=== PATIENT | female | born 2005 | race Caucasian/White ===

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

== ENCOUNTER 2024-02-07 18:01 | Emergency (ER) | payer OTHER, SELFPAY ==
[2024-02-07 18:03] VITALS: BP 139/88; PULSE 87; RESP 16; TEMP 36.4; O2SAT 100
--- NOTE | 2024-02-07 18:14 | ED.SKABFB ---
HPI - Skin/Abscess/Foreign Bdy General Chief complaint: Skin/Abscess/Foreign Body Stated complaint: hemorrhoid Time Seen by Provider: 02/07/24 18:06 Source: patient Mode of arrival: ambulatory Limitations: no limitations History of Present Illness HPI narrative: Yue is a 18-year-old female patient presenting to the ER today with complaints of a painful hemorrhoid. She reports that she has had the hemorrhoid for a long time however over the last few days is become more painful. States she is passing hard stools and this is causing increase in pain. Does note some blood on the toilet paper when wiping. No fever or chills. Denies any abdominal pain. Related Data Allergies Allergy/AdvReac Type Severity Reaction Status Date / Time lisinopril Allergy Intermediate Swelling Verified 01/13/24 15:46 losartan Allergy Intermediate Swelling Verified 01/13/24 15:46 red dye Allergy Unknown Verified 01/13/24 15:46 Review of Systems Review of Systems: Pertinent positives per HPI. Patient denies any fever, chills, rash, headache, visual changes, dizziness, cough, runny nose, sore throat, shortness of breath, chest pain, palpitations, nausea, vomiting, diarrhea, constipation, abdominal pain, or any urinary issues. [facility] Past Medical History Medical History HTN (hypertension) Social History Social History Smoking status: Never smoker Alcohol intake: never Do You Feel Safe in your Home?: Yes Lack of Transportation: No Lack of Food: Never True Current Housing: I Have Housing Concerned About Future Housing: No Difficulty Paying Gas/Electric Bills: No Difficulty Paying for Meds: No Currently Unemployed: No Education: High School Diploma/GED Difficulty w/ Childcare or Family Care: No Gender identity (if verbalized by the patient): Female Comments At the time of my signature, I reviewed and agree with the nursing past medical, surgical, social, and family history. There is no relevant family history pertinent to the patient complaint. Exam Narrative: General: Well-developed, well nourished, in no apparent distress. Head: Normocephalic, atraumatic. Cardio: Regular rate and rhythm, s1 and s2 normal, no murmur appreciated. Resp: Clear to auscultation bilaterally, no rhonchi, rales, wheezing or rubs. Abdomen: Soft, pliable, bowel sounds present in all quadrants, non-tender to palpation, no organomegly, no CVAT tenderness. Rectal: Joan RN at bedside- external thrombosed hemorrhoid at 6 oclock of the rectum and a non thrombosed hemorrhoid at 12 oclock of the rectum Course Course Emergency Course: Portions of this record may have been created with voice recognition software. Vital Signs Vital signs: Vital Signs Temperature 36.4 C 02/07/24 18:03 Pulse Rate 87 02/07/24 18:03 Respiratory Rate 16 02/07/24 18:03 Blood Pressure 139/88 02/07/24 18:03 Pulse Oximetry 100 02/07/24 18:03 Oxygen Delivery Room Air 02/07/24 18:03 Temperature 36.4 C 02/07/24 18:03 Pulse Rate 87 02/07/24 18:03 Respiratory Rate 16 02/07/24 18:03 Blood Pressure 139/88 02/07/24 18:03 Pulse Oximetry 100 02/07/24 18:03 Oxygen Delivery Room Air 02/07/24 18:03 Vital signs reviewed MDM - Skin/Abscess/Foreign Bdy MDM Narrative Medical decision making narrative: At the time of visit patient is resting comfortably on the exam table. Patient appears to be nontoxic. Plan: I suspect patient has an external thrombosed hemorrhoid. Prescription for Anusol and lidocaine was sent to the pharmacy. Encouraged use of Sitz baths and taking stool softeners. Discussed may needing referral to General surgery if symptoms persist. Supportive measures were discussed with the patient and they voiced understanding discharge instructions and agrees to treatment plan. Return precautions
== END 2024-02-07 18:21 | disposition home or self-care (01) ==
PROVIDERS: Emergency Provider Nurse Practitioner Family; PCP Emergency Medicine
DX: K64.5 Perianal venous thrombosis (principal); I10 Essential (primary) hypertension; Z79.899 Other long term (current) drug therapy
CPT/HCPCS: 99283

== ENCOUNTER 2024-02-19 09:53 | Emergency (ER) | payer OTHER, SELFPAY ==
[2024-02-19 10:03] VITALS: BP 128/74; PULSE 66; RESP 18; TEMP 36.8; O2SAT 100
[2024-02-19 10:22] LABS: EDUAAPPEAR Clear; EDUABILI 1+; EDUABLOOD Trace; EDUACOLOR1 Yellow; EDUAGLUCOSE Negative; EDUAKETONE Negative; EDUALEUKO 1+; EDUANITRATE Positive; EDUAPROTEIN 1+; EDUAUROBILI 0.2
--- NOTE | 2024-02-19 10:24 | PC.NURSE ---
Patient left without being seen. This nurse walked in the room to see the patient, but the patient's mother started having a seizure. 911 called and patient left with her mother to go to to the ED.
--- NOTE | 2024-02-19 11:27 | PC.NURSE ---
Patient notified that she did have a UTI based on her urinalysis results. Patient left without being seen earlier today. Patient informed that if she wants to be treated for her UTI she will need to come back to the [facility] so we can properly examine/evaluate her. Patient verbalizes understanding.
== END 2024-02-19 10:23 | disposition left against medical advice (07) ==
PROVIDERS: Emergency Provider Nurse Practitioner; PCP Emergency Medicine
DX: R39.9 Unspecified symptoms and signs involving the genitourinary system (principal)
CPT/HCPCS: 81003; 99199

== ENCOUNTER 2024-02-20 18:19 | Emergency (ER) | payer OTHER, SELFPAY ==
[2024-02-20 18:27] VITALS: BP 140/74; PULSE 78; RESP 16; TEMP 36.1; O2SAT 100
--- NOTE | 2024-02-20 18:45 | ED.ABDPAIN ---
HPI - Abdominal Pain General Chief Complaint: Urogenital-Female Stated Complaint: Poss UTI History of Present Illness HPI narrative: patient is a 18-year-old female, past medical history significant for recurrent urinary tract infections, was sent by her PCP for urinalysis today as she has had dysuria for 2 days and has been prescribed antibiotics in the past that have been ineffective in treating her urinary tract infections. She has not had an antibiotic last 30 days. She endorses dysuria, frequency and urgency. She denies gross hematuria, flank pain or fevers. She is not vomiting. She denies being sexually active are at risk for . Mom states that she believe she has received Bactrim in the past as well as Macrobid without symptom relief. She has not received a referral to see Urology by her primary care provider. She denies any additional associated symptoms or modifying factors. Related Data Allergies Allergy/AdvReac Type Severity Reaction Status Date / Time lisinopril Allergy Intermediate Swelling Verified 01/13/24 15:46 losartan Allergy Intermediate Swelling Verified 01/13/24 15:46 red dye Allergy Unknown Verified 01/13/24 15:46 Review of Systems Genitourinary: Comments: Refer to [facility] Past Medical History Medical History HTN (hypertension) Social History Social History Smoking status: Never smoker Alcohol intake: never Do You Feel Safe in your Home?: Yes Lack of Transportation: No Lack of Food: Never True Current Housing: I Have Housing Concerned About Future Housing: No Difficulty Paying Gas/Electric Bills: No Difficulty Paying for Meds: No Currently Unemployed: No Education: High School Diploma/GED Difficulty w/ Childcare or Family Care: No Gender identity (if verbalized by the patient): Female Exam Const: General: healthy appearing, no acute distress and alert Nutritional Appearance: obese Orientation/consciousness: patient oriented x3 Limitations: no limitations HENMT: Head: normal to inspection Ears: external ears normal Mouth: Yes Normal oral and palatal mucosa present Eyes: Conjunctivae: conjunctivae normal Neck: Neck: normal visual inspection and no meningeal signs Resp: Effort & Inspection: normal respiratory effort Auscultation: clear to auscultation bilaterally Cardio: Rate: regular rate Rhythm: regular rhythm GI: GI Palp: Yes Soft to palpation, No Tenderness to palpation present (GI), No Guarding due to palpation present (GI), No Rigid due to palpation, No Hernia present, No Palpable mass present and No Rebound tenderness present Other: no CVA tenderness bilaterally : Other: no suprapubic tenderness palpation, no peritoneal findings Skin: General skin exam: normal color Rashes: no rashes Neuro: General: patient oriented x3, moves all extremities, no meningeal signs, no focal motor deficits and CN's II-XI intact bilaterally Speech: normal speech Gait exam (Neuro): Normal gait present Extrem: General: normal to inspection Course Course Emergency Course: urine is cloudy, urine dipstick results received and reviewed, urine culture sent. Plan to treat patient with ciprofloxacin with culture pending his mom does not recall hearing patient taking Cipro previously. Follow-up closely with her PCP if symptoms are not improving in 2-3 days, she may require a referral to see Urology given her history of recurrent urinary tract infections. One prior urine culture was available for review our computer system per 2022 and his culture grew normal urogenital nemo. They were encouraged to proceed to the ER if she develops fevers, flank pain or vomiting with any concerns or condition is worsening. Level of Care: Express Care Visit ([id number]) Vital Signs Vital signs: Vital Signs Temperature 36.1 C L 02/19/ 1
[2024-02-20 18:54] LABS: EDUAAPPEAR Clear; EDUABILI Negative; EDUABLOOD Trace; EDUACOLOR1 Yellow; EDUAGLUCOSE Negative; EDUAKETONE Negative; EDUALEUKO 1+; EDUANITRATE Negative; EDUAPH 5.5; EDUAPROTEIN 1+; EDUAUROBILI 0.2
== END 2024-02-20 18:58 | disposition home or self-care (01) ==
PROVIDERS: Emergency Provider Nurse Practitioner Family; PCP Emergency Medicine
DX: N30.01 Acute cystitis with hematuria (principal); B96.20 Unspecified Escherichia coli [E. coli] as the cause of diseases classified elsewhere; I10 Essential (primary) hypertension
CPT/HCPCS: 81003; 87077; 87086; 87088; 87186; 99213; G0463

== ENCOUNTER 2024-04-05 14:35 | Emergency (ER) | payer OTHER, SELFPAY ==
[2024-04-05 14:37] VITALS: BP 131/81; PULSE 82; RESP 18; TEMP 36.5; O2SAT 100
[2024-04-05 15:40] VITALS: O2SAT 100
[2024-04-05] MEDS: diphenhydrAMINE HCl INJ 50 MG/ML VIAL IV PUSH (15:47)
[2024-04-05] MEDS: methylPREDNISolone SOD SUCC 125 MG VIAL IV PUSH (15:47)
[2024-04-05] MEDS: FAMOTIDINE 20 MG/2 ML VIAL IV PUSH (15:47)
[2024-04-05 16:01] VITALS: BP 140/83; PULSE 66; RESP 19; O2SAT 100
--- NOTE | 2024-04-05 16:27 | ED.ALLEREA ---
HPI - Allergic Reaction General Chief complaint: Allergic Reaction Stated complaint: allergic reaction Time Seen by Provider: 04/05/24 15:36 History of Present Illness HPI narrative: Patient is a 18-year-old female who presents to the emergency department this afternoon due to concern for an allergic reaction. Patient does have some known allergies including red dye and is unsure what she may have been exposed to her. Patient states that symptoms initially started this morning before she went to work and while she was or what work she noticed the symptoms worsening. Patient noticed that she was developing a rash to her bilateral wrist in some tingling in her face and around her lips. Mother wanted to administer the patient EpiPen that she has at home but noticed that it has been by 1 month so she decided to bring the patient in for further evaluation. Patient denies any chest pain or shortness of breath. No additional symptoms or concerns at this time. Related Data Allergies Allergy/AdvReac Type Severity Reaction Status Date / Time lisinopril Allergy Intermediate Swelling Verified 04/05/24 14:35 losartan Allergy Intermediate Swelling Verified 04/05/24 14:35 calcium carbonate [From Tums] Allergy Anaphylaxis Verified 04/05/24 15:43 red dye Allergy Unknown Verified 04/05/24 14:35 Review of Systems Review of Systems: All systems are reviewed and are negative unless stated otherwise in the HPI. [facility] Past Medical History Medical History HTN (hypertension) Social History Social History Smoking status: Never smoker Alcohol intake: never Do You Feel Safe in your Home?: Yes Lack of Transportation: No Lack of Food: Never True Current Housing: I Have Housing Concerned About Future Housing: No Difficulty Paying Gas/Electric Bills: No Difficulty Paying for Meds: No Currently Unemployed: No Education: High School Diploma/GED Difficulty w/ Childcare or Family Care: No Gender identity (if verbalized by the patient): Female Exam Narrative: General: Alert, awake, afebrile, in no acute distress. HEENT: PERRL, no rhinorrhea, no post nasal drip, oropharynx clear. Cardiovascular: Regular rate and rhythm, no murmurs, rubs or gallops, no peripheral edema. Respiratory: Clear to auscultation bilaterally, no tachypnea, no wheezing, no rhonchi, no rubs, no respiratory distress. Abdomen: Soft, nontender, nondistended, no rebound, no guarding, no peritoneal signs. Musculoskeletal: No joint swelling or deformity, normal muscle tone. Skin: Urticarial rash to bilateral wrist, patient does have a rash on her abdomen which she states is from contact dermatitis from a metal belt buckle.. Neurological: Alert and oriented to person, place, and time. Follows all commands. No focal deficits, speech is clear and fluent. Course Vital Signs Vital signs: Vital Signs Temperature 97.7 F 04/05/24 14:37 Pulse Rate 82 04/05/24 14:37 Respiratory Rate 18 04/05/24 14:37 Blood Pressure 131/81 04/05/24 14:37 Pulse Oximetry 100 04/05/24 14:37 Oxygen Delivery Room Air 04/05/24 14:37 Temperature 97.7 F 04/05/24 14:37 Pulse Rate 75 04/05/24 17:24 Respiratory Rate 20 04/05/24 17:24 Blood Pressure 144/85 H 04/05/24 17:24 Pulse Oximetry 100 04/05/24 17:24 Oxygen Delivery Room Air 04/05/24 15:40 MDM - Allergic Reaction MDM Narrative Medical decision making narrative: The patient was evaluated by myself in the emergency department. History is obtained from patient who is an independent historian and physical exam was performed. External medical records were reviewed at this time. IV was established and pertinent tests were ordered. Patient was administered 125 mg of IV Solu-Medrol, 20 mg of IV Versed and 50 mg of IV Benadryl. Differential diagnosis considerations i
[2024-04-05 17:24] VITALS: BP 144/85; PULSE 75; RESP 20; O2SAT 100
== END 2024-04-05 17:26 | disposition home or self-care (01) ==
PROVIDERS: Emergency Provider Emergency Medicine; PCP Emergency Medicine
DX: T78.40XA Allergy, unspecified, initial encounter (principal); I10 Essential (primary) hypertension
CPT/HCPCS: 96374; 96375; 99284; J1200; J2919

== ENCOUNTER 2025-01-14 15:59 | Emergency (ER) | payer OTHER, SELFPAY ==
[2025-01-14 16:10] VITALS: BP 135/84; PULSE 67; RESP 16; TEMP 36.6; O2SAT 99
--- NOTE | 2025-01-14 16:18 | PC.NURSE ---
Per EDP Dr. Yepez pt does not need a sitter. Pt family is at bedside.
[2025-01-14 16:19] LABS: Basophils Percent Auto 0.7 % (0.2-1.2); Eosinophils Percent Auto 0.4 % (0-4.4); Hematocrit 42.5 % (37.0-47.0); Immature Granulocyte Absolute 0.01 K/mm3 (0.00-0.031); Immature Granulocyte Percent A 0.2 % (0-0.5); Lymphocytes Absolute Auto 1.15 K/mm3 (0.9-3.2); Lymphocytes Percent Auto 21.3 % (18.3-44.2); Mean Corpuscular HGB Conc 32.9 g/dl (32-36); Mean Corpuscular Hemoglobin 28.5 pg (26-34); Mean Corpuscular Volume 86.6 fl (80-100); Mean Platelet Volume 14.1 fl (7.4-10.4); Monocytes Absolute Auto 0.3 K/mm3 (0.1-0.6); Monocytes Percent Auto 5.2 % (2.6-8.5); Neutrophils Absolute Auto 3.9 K/mm3 (1.3-6.7); Neutrophils Percent Auto 72.2 % (45.5-73.1); Platelet Count Result 136 k/mm3 (150-375); Red Blood Count 4.91 M/mm3 (4.2-5.4); Red Cell Distribution Width 13.2 % (11.5-14.5); White Blood Count 5.4 K/mm3 (4.5-10.0)
[2025-01-14 16:21] LABS: BEDSIDEPREGUCG Negative (Negative)
[2025-01-14 16:21] LABS: Add Urine Microscopic? YES; Appearance Urine Cloudy (Clear); Bacteria Urine 1+ /hpf; Bilirubin Urine Negative (Negative); Blood Urine Negative (Negative); Color Urine Yellow (Yellow); Glucose Urine UA Negative (Negative); Ketones Urine Trace mg/dL (Negative); Leukocyte Esterase Ur 1+ LEU/UL (Negative); Nitrate Urine Negative (Negative); Protein Urine 1+ mg/dL (Negative); RBC Urine 0-2 /hpf (0-2); Specific Grav Ur 1.022 (1.001-1.035); Squamous Epithelial Cell Urine Moderate /hpf (Few)
[2025-01-14 16:28] LABS: Alanine Aminotransferase 18 U/L (6-35); Albumin Level 5.1 g/dL (3.5-5.1); Alkaline Phosphatase 27 U/L (38-126); Anion Gap 10 mmol/L (4-12); Aspartate Amino Transferase 29 U/L (14-36); Bilirubin,Total 0.9 mg/dL (0.2-1.3); Blood Urea Nitrogen 12 mg/dL (7-17); Calcium 9.9 mg/dL (8.4-10.2); Carbon Dioxide 25 mmol/L (22-30); Chloride 107 mmol/L (98-107); Estimated CRCL calculation 90 ml/min; Estimated Glomerular Filt Rate > 60; Glucose 88 mg/dL (65-110); Potassium 4.2 mmol/L (3.4-5.0); Sodium 142 mmol/L (137-145); Total Protein 8.5 g/dL (6.3-8.2)
--- NOTE | 2025-01-14 16:29 | PC.NURSE ---
pt's mom and brother at bedside. Pt OK w/ them being back there. Pt is low risk at this time.
[2025-01-14 16:30] LABS: Ethanol < 10 mg/dL (<10)
--- OUTSIDE RECORDS SUMMARY | 2025-01-14 16:40 | XMS_ITS | Clinical Summary ---
Author Organization [facility] Address [address] [place] [address] Phone Care Team Providers Care Zig Zag Stitcher Name Role Phone Axel Hummel MD Primary Care Provider [phone] Nicolas Morales MD Unavailable Allergies Active Allergy Reactions Criticality Noted Date Comments Calcium Carbonate Swelling Medium 07/13/2022 Famotidine-Ca Carb-Mag Hydrox Swelling Medium 2020 Medications ondansetron (ZOFRAN) 4 MG Tablet Take 1 Tab by mouth every 8 hours as needed for Nausea - 1st line. 10 Tab 8 Active Additional Information Patient not taking.Reported on 02/19/2024 albuterol 108 (90 Base) MCG/ACT Aerosol Solution take 2 Puffs by inhalation every 6 hours as needed for Cough. 6.7 g 3 Active Additional Information Patient not taking.Reported on 02/19/2024 lisinopril (PRINIVIL, ZESTRIL) 5 MG Tablet 3 Active amLODIPine (NORVASC) 5 MG Tablet Take 5 mg by mouth daily. 4 Active cetirizine (ZyrTEC) 10 MG Tablet Take 10 mg by mouth daily. Active Active Problems No known active problems Family History Medical History Relation Name Comments No Known Problems Brother Hypertension Father No Known Problems Half-Brother 1 No Known Problems Half-Brother 2 Schizophrenia Half-Brother 3 No Known Problems Half-Sister Other-comment Maternal Grandfather MVA Heart Surgery Maternal Grandmother Hypertension Mother Seizures Mother Stroke Mother Cancer Paternal Grandfather Heart Cancer Paternal Grandmother Kidney Cancer Paternal Grandmother Liver Cancer Paternal Grandmother Relation Name Status Comments Brother Alive Father Alive Half-Brother 1 Alive Half-Brother 2 Alive Half-Brother 3 Alive Half-Sister Alive Maternal Grandfather Maternal Grandmother Alive Mother Alive Paternal Grandfather Paternal Grandmother Social History Tobacco Use Types Packs/Day Years Used Date Smoking Tobacco: Never Smokeless Tobacco: Never Alcohol Use Standard Drinks/Week Comments No 0 (1 standard drink = 0.6 oz pur e alcohol) Sexually Active Control Partners Comments Not Currently Comments No Sex and Gender Information Value Date Recorded Sex Assigned at Not on file Legal Sex Female 12:29 AM CDT Gender Identity Not on file Sexual Orientation Not on file Last Filed Vital Signs Vital Sign Reading Time Taken Comments Blood Pressure 123/76 08/16/2024 3:19 PM MANAGER MEETING Pulse 68 08/16/2024 3:19 PM MANAGER MEETING Temperature 36.6 C (97.8 F) 08/16/2024 1:57 PM MANAGER MEETING Respiratory Rate 16 08/16/2024 3:19 PM MANAGER MEETING Oxygen Saturation 99% 08/16/2024 3:19 PM MANAGER MEETING Inhaled Oxygen Concentration - - Weight 67.1 kg (148 lb) 08/16/2024 1:57 PM MANAGER MEETING Height 162.6 cm (5' 4) 08/16/2024 1:57 PM MANAGER MEETING Body Mass Index 25.4 08/16/2024 1:57 PM MANAGER MEETING Plan of Treatment Health Maintenance Due Date Last Done Comments Hepatitis C Virus (HCV) Screening 2004 SARS-COV-2 Immunization ( season) 2024 01/16/2021, 12/26/2020 Influenza Immunization (Season Ended) 2025 05/15/2022, 06/13/2021, 10/07/2019, Additional history exists Respiratory Syncytial Virus (RSV) Immunization (Adult) (1 - 1-dose 75+ series) 11/17/2079 Hepatitis B Immunization Completed 005, 04/18/2005, 01/24/2005, Additional history exists Pneumococcal Immunization Combined Aged Out 04/16/2006, 06/13/2005, 04/18/2005, Additional history exists No longer eligible based on patient's age to complete this topic Hepatitis A Immunization Discontinued 10/31/2007, 01/03 Measles Mumps Rubella (MMR) Immunization Discontinued 07/18/2009, 11/28/2005 Polio (IPV) Immunization Discontinued 009, 06/13/2005, 04/18/2005, Additional history exists Varicella Immunization Discontinued 07/18/2009, 2005 DTaP/Tdap/Td Immunization Discontinued 2015, 07/18/2009, 04/16/2006, Additional history exists TdaP Immunization Completed 04/27/2016 Human Papillomavirus (HPV) Immunization Completed 10/25/2016, 04/27/2016 Meningococcal B Immunization Completed 05/22/2021, 04/06/2021 Meningococcal Immunization (ACWY) Completed 05/22/2021, 04/27/2016 Rotavirus Immunization Aged Out No lo nger eligible based on patient's age to complete this topic Insurance [place]ICAID [place] Care Teams Zig Zag Stitcher Relationship Specialty Start Date End Date Axel Hummel MD [address] [facility] [address] [place] [address] PCP - General Internal Medicine 01/16/24 Nicolas Morales MD [address] [facility] [address] [place] [address] Consulting Physician Colon and Rectal Surgery 02/11/24
--- OUTSIDE RECORDS SUMMARY | 2025-01-14 16:40 | XMS_ITS | Referral Summary ---
Author Organization [facility] Address [address] [place] [address] Care Team Providers Care White Metal Corrosion Proofer Name Role Phone Torie Madrid MD Primary Care Pr ovider Allergies Active Allergy Reactions Criticality Noted Date Comments Calcium Carbonate Swelling Medium 07/13/2022 Other Rash,Swelling Medium 05/05/2015 Famotidine-Ca Carb-Mag Hydrox Swelling Medium 2020 Medications amoxicillin-cla vulanate (AUGMENTIN) 875-125 mg per tablet 1 Active cetirizine (ZyrTEC) 10 mg tablet Take 10 mg by mouth daily as needed 5 Active docusate sodium (COLACE) 100 mg capsule TAKE 1 CAPSULE BY MOUTH EVERY DAY IN THE EVENING 1 Active fluticasone propionate (FLONASE) 50 mcg/actuation nasal spray Administer 2 sprays into affected nostril(s) daily 5 Active hydrocortisone (ANUSOL-HC) 2.5 % rectal cream APPLY THIN LAYER TOPICALLY TO THE AFFECTED AREA 2 TO 4 TIMES DAILY 1 Active EPINEPHrine 0.3 mg/0.3 mL auto-injection syringeIndicati ons:Anaphylaxis Inject 0.3 mL (0.3 mg total) into the muscle as instructed as needed for anaphylaxis 2 each 2 Active cholecalciferol (VITAMIN D-3) 50,000 unit capsule TAKE ONE CAPSULE BY MOUTH ONCE WEEKLY FOR 12 WEEKS 2 Active lisinopriL (PRINIVIL,ZESTR [place]) 5 mg tablet Take 1 tablet (5 mg total) by mouth daily 30 tablet 11 3 Active Active Problems No known active problems Social History Tobacco Use Types Packs/Day Years Used Date Smoking Tobacco: Never Smokeless Tobacco: Never Tobacco Cessation:Counseling Given: Not Answered Personal Safety Answer Date Recorded Getting School Help Needed Not on file 10/18 Comments No Sex and Gender Information Value Date Recorded Sex Assigned at Not on file Legal Sex Female 2:26 PM ACCOUNTS 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 Gender Identity Not on file Sexual Orientation Not on file Last Filed Vital Signs Vital Sign Reading Time Taken Comments Blood Pressure 130/98 12/14/2022 2:01 PM CDT Pulse 96 12/14/2022 2:01 PM CDT Temperature 37.4 C (99.3 F) 12/14/2022 2:01 PM CDT Respiratory Rate 20 12/14/2022 2:01 PM CDT Oxygen Saturation 98% 12/14/2022 2:01 PM CDT Inhaled Oxygen Concentration - - Weight 98.7 kg (217 lb 9.5 oz) 12/14/2022 2:01 P M CDT Height 161 cm (5' 3.39) 12/14/2022 2:01 PM CDT Body Mass Index 38.08 12/14/2022 2:01 PM CDT Plan of Treatment Not on file Insurance [facility] Member Subscriber Plan / Payer (Ef fective 2021-Present) Name:Yue Humphreys Relation to Subscriber:Self Name:HumphreysYue Payer ID:[id number] (NAIC) Group ID:Not on file Type:MEDICAID RISK OTHER Address: ATTN: CLAIMS DEPT [address] [place] [id number] Care Teams White Metal Corrosion Proofer Relationship Specialty Start Date End Date Torie Madrid MD [address] [place] [address] [address] [place] [address] PCP - General 06/08/17
--- OUTSIDE RECORDS SUMMARY | 2025-01-14 16:40 | XMS_ITS | Clinical Summary ---
Author Organization [facility] Address [address] [place] [id number] Care Team Providers Care Nursing Home Admissions Director Name Role Phone Torie Madrid MD Primary [...] Family History Medical History Relation Name Comments Hypertension Father Hypertension Mother Relation Name Status Comments Father Mother Social History Tobacco Use Types Packs/Day Years Used Date Smoking Tobacco: Never Smokeless Tobacco: Never Tobacco Cessation:Counseling Given: Not Answered Personal Safety Answer Date Recorded Getting School Help Needed Not on file 10/18 Comments No Sex and Gender Information Value Date Recorded Sex Assigned at Not on file Legal Sex Female 2: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 Gender Identity Not on file Sexual Orientation Not on file Obstetrics History Last Filed Vital Signs Vital Sign Reading [...] 12/14/2022 2:01 PM CDT Plan of Treatment Health Maintenance Due Date Last Done Comments Depression Screening 2004 Hepatitis C Screening 2004 Regular Well Visit/Exam 18-64 2022 Covid-19 Vaccine (2023-2 5 season) 2024 01/16/2021, 12/26/2020 Influenza Vaccine (Season Ended) 2025 05/15/2022, 06/13/2021, 10/07/2019, Additional history exists DTaP/Tdap/Td Vaccine (7 - Td or Tdap) 04/27/2026 04/27/2016, 07/18/2009, 04/16/2006, Additional history exists Hepatitis B Screening Completed 06/13/2005 , 04/18/2005, 01/24/2005, Additional history exists Pneumococcal vaccine <65 Completed 006, 06/13/2005, 04/18/2005, Additional history exists Varicella Vaccines Completed 07/18/2009, 11/28/2005 HPV Vaccines Completed 10/25/2016, 04/27/2016 Meningococcal B Vaccine Completed 05/22/2021, 04/06 Meningococcal Vaccine Completed 05/22/2021, 016 Insurance [facility] Care Teams Nursing Home Admissions Director Relationship Specialty Start Date End Date Torie Madrid MD [address] [place] [address] [place] [address] PCP - General 06/08/17
--- OUTSIDE RECORDS SUMMARY | 2025-01-14 16:40 | XMS_ITS | Clinical Summary ---
Author Organization [facility] Address [address] [place] [address] Care Team Providers Care Capture Manager Name Role Phone Torie Madrid MD Primary Care Provider Source Comments [facility] [place] [facility],non-owned Affiliates and Associated Physician Practices is amultiple site organization consisting of ambulatory clinics and hospital sitesin [place], [place], [place] and [place]. This disclosure is being madepursuant to the Care Everywhere program and may not contain all information available regarding this patient. Last updated 18.[facility] Allergies No known active allergies Medications * Be aware that medications may not be up to date on this document. Alwaysverify current medications with the patient. EPINEPHrine (EPIPEN 2-RAYNA) 0.3 MG/0.3ML auto-injectorIn dications:Angio edema, subsequent encounter,Food allergy Inject 0.3 mL into muscle once as needed for Anaphylaxis 1 Each 0 5 Active FEROSUL 325 (65 Fe) MG tablet Take 325 mg by mouth 2 times daily 1 Active cetirizine (ZYRTEC) 10 MG tabletIndicatio ns:Non-seasonal allergic rhinitis due to other allergic trigger,Angioed mauricio, subsequent encounter Take 1 (one) tablet by mouth once daily as needed (for hives, swelling, nose or eye symptoms) 30 tablet 6 04/25/202 2 Active Active Problems Patient Care Coordination No te Formatting of this note migh t be different from the original. Do you have any cultural preferences or concerns? No 11/27/21 Problem Noted Date Diagnosed Date Food intolerance 05/05/2015 Overview (11/27/2021): 10/26/14: IgE food panel: Trace sensitivity to shrimp, scallop, milk, egg and sesame. She tolerates all these foods except for lip swelling to shrimp. Later tolerated shrimp 11/06/21: Ate cashews and 30 minutes later drank Watermelon Mountain Dew (natural flavor, red dye 40) and immediately had swelling of eyes and ears, SOB (was anxious and hyperventilating per her mother), felt her heart pounding and felt warm. No emesis. Was seen in a local ED and was given epi without other treatment. Sometime later, she drank Mountain Dew Code Red (Contains orange juice, red dye 40, yelllow 5, and blue 1), after which her mouth tingled and she felt warn. After taking Tums (calcium carbonate + flavors) had lip and throat swelling without SOB 11/07/20: per PCP (done the day after the reaction: false negative tests possible since during the negative refractory period) IgE immunocaps Tree nuts and peanut (all undetectable) Red dye 40 (0.36, has no predictive value since reactions to food dyes not shown to be IgE mediated) Will retest a tree nut component panel to confirm negative result. Adverse reactions to food dyes have not been shown to be IGE mediated and do not in general result in anaphylaxis. May avoid red dye 40 for comfort, but recently tolerated this. Non-seasonal allergic rhinitis 05/05/2015 Overview (11/27/2021): 10/26/14: IgE panel to inhalents: + dust mites, trees, and grass. Angioedema 05/05/2015 Immunizations Immunization Administration Dates Next Due Dyn primary monoval ent 12+ yr 0.3mL Purple cap 01/16/2021,12/26/2020 INFLUENZA VACCINE 06/13/2021 Family History Medical History Relation Name Comments Allergies Maternal Grandmother Allergies Mother Asthma Mother Thyroid Disease Mother Relation Name Status Comments Maternal Grandmother Mother Social History Tobacco Use Types Packs/Day Years Used Date Smoking Tobacco: Passive Smo ke Exposure - Never Smoker Comments No Sex and Gender Information Value Date Recorded Sex Assigned at Not on file Legal Sex Female 11:12 AM CDT Gender Identity Not on file Sexual Orientation Not on file Last Filed Vital Signs Vital Sign Reading Time Taken Comments Blood Pressure 118/85 11/27/2021 8:42 AM CDT Pulse 86 11/27/2021 8:42 AM CDT Temperature 36.6 C (97.8 F) 11/27/2021 8:42 AM CDT Respiratory Rate 18 11/27/2021 8:42 AM CDT Oxygen Saturation - - Inhaled Oxygen Concentration - - Weight 92.6 kg (204 lb 2.3 oz) 11/27/2021 8:42 A M CDT Height 160 cm (5' 2.99) 11/27/2021 8:42 AM CDT Body Mass Index 36.17 11/27/2021 8:42 AM CDT Plan of Treatment Health Maintenance Due Date Last Done Comments HIV SCREENING 11/17/2019 HPV VACCINE (1 - 3-dose series) 11/17/2019 CHLAMYDIA/GONORRHEA SCREENING 2020 07/07/2018 MENINGOCOCCAL (Group B) VACCINE SHARED DECISION-MAKING (1 of 2 - Standard) 2020 HEPATITIS C SCREENING 11/12/2022 DTAP/TDAP/TD VACCINES (1 - Tdap) 11/17/2023 HEPATITIS B VACCINE (1 of 3 - 19+ 3-dose series) 11/17/2023 COVID-19 VACCINE (3 - 2023-2 5 season) 2024 01/16/2021, 12/26/2020 DEPRESSION SCREENING 08/05/2024 INFLUENZA VACCINE (Season Ended) 2025 06/13/2021 ZOSTER VACCINE (1 of 2) 2054 HIB VACCINE Aged Out No longer eligi ble based on patient's age to complete this topic MENINGOCOCCAL GROUPS A/C/Y/W VACCINE Aged Out No longer eligible b ased on patient's age to complete this topic PNEUMOCOCCAL VACCINE Aged Out No long er eligible based on patient's age to complete this topic Insurance [id number] [place] [address] [id number] [place] [address] Care Teams Capture Manager Relationship Specialty Start Date End Date Torie Madrid MD PCP - General 11/19/14
[2025-01-14 16:41] LABS: Amphetamine Screen Urine Negative (Negative); Barbiturate Screen Urine Negative (Negative); Benzodiazepines Screen Urine Negative (Negative); Cannabinoid Screen Urine Positive (Negative); Cocaine Screen Urine Negative (Negative); Methadone Screen Urine Negative (Negative); Opiate Screen Urine Negative (Negative); Phencyclidine Screen Urine Negative (Negative)
--- NOTE | 2025-01-14 16:47 | ED_ITS ---
HPI - Psych General Chief Complaint: Psychiatric Symptoms <Sarwat Cool MD - Last Filed: 01/15/25 21:36> Stated Complaint: si <Sarwat Cool MD - Last Filed: 01/15/25 21:36> Time Seen by Provider: 01/14/25 16:05 <Sarwat Cool MD - Last Filed: 01/15/25 21:36> History of Present Illness HPI Narrative: 19-year-old female presenting to the emergency department with suicidal ideation. Patient states that she onto an argument with her mother and grabbed a kitchen knife and held it to her throat and then this was taken away from her so she ran upstairs took a handful of pills and gestured that she would ingest them but this was also taken away from her and she did not get any medication or ingestion. Patient states that this has happened twice before and related to stressful home situations. Family members are present at bedside. Patient herself denies any symptoms and states that she feels remorse from this and wishes to have psychiatric help. No history of any psychiatric illness aside from anxiety. Does not take any chronic medications. Has never been evaluated by Psychiatry before. History of psychiatric hospitalizations before. < Sarwat Cool MD - Last Filed: 01/15/25 21:36> Related Data Allergies/Adverse Reactions: Allergies Allergy/AdvReac Type Severity Reaction Status Date / Time lisinopril Allergy Intermediate Swelling Verified 12/29/24 09:59 losartan Allergy Intermediate Swelling Verified 12/29/24 09:59 calcium carbonate (From Tums) Allergy Anaphylaxis Verified 12/29/24 09:59 red dye Allergy Unknown Verified 12/29/24 09:59 <Sarwat Cool MD - Last Filed: 01/15/25 21:36> Review of Systems 2 Review of Systems: As reviewed above in HPI <Sarwat Cool MD - Last Filed: 01/15/25 21:36> PMFSH Past Medical History Medical History: Medical History Sinusitis chronic, frontal Abdominal pain Dysuria HTN (hypertension) <Sarwat Cool MD - Last Filed: 01/15/25 21:36> Social History Social History: Social History Smoking status: Never smoker Alcohol intake: never Do You Feel Safe in your Home?: Yes Lack of Transportation: No Lack of Food: Never True Current Housing: I Have Housing Concerned About Future Housing: No Difficulty Paying Gas/Electric Bills: No Difficulty Paying for Meds: No Currently Unemployed: No Education: High School Diploma/GED Difficulty w/ Childcare or Family Care: No Gender identity (if verbalized by the patient): Female <Sarwat Cool MD - Last Filed: 01/15/25 21:36> Exam 2 Narrative: GENERAL: [Well-appearing, well-nourished, and in no acute distress.] HEAD: [Normocephalic, atraumatic.] EYES: [PERRLA and EOMI.] ENT: Nares clear, no rhinorrhea or epistaxis. Mucous membranes moist. NECK: Supple. CHEST: [Clear to auscultation. No respiratory distress.] HEART: [Regular rate and rhythm]. No murmur heard. [Normal peripheral pulses.] ABDOMEN: [Soft, nondistended], [nontender], [No rigidity or guarding] EXTREMITIES: Normal range of motion. [No edema.] SKIN: Warm, dry, no rash. NEURO: [No focal deficits]. Alert and oriented [x3.] PSYCH: Endorses suicidal ideation, no homicidal ideation or visual/auditory hallucinations. <Sarwat Cool MD - Last Filed: 01/15/25 21:36> Course Course Emergency Course: 626: No care issues overnight. Resting comfortably. [facility] attempt placement at [facility] morning as they may have increased nursing staff to accept the patient. Also speaking with [place]. Care transferred to Dr. Oquendo. <Jez Jarvis MD - Last Filed: 01/15/25 06:45> Vital Signs Vital signs: Vital Signs Temperature 36.6 C 01/14/25 16:10 Pulse Rate 67 01/14/25 16:10 Respiratory Rate 16 01/14/25 16:10 Blood Pressure 135/84 01/14/25 16:10 Pulse Oximetry 99 01/14/25 16:10 Oxygen Delivery Room Air 01/14/25 16:10 Temperature 36.7 C 01/15/25 09:26 Pulse Rate 95 01/15/25 09:26 Respiratory Rate 15 01/15/25 09:26 Blood Pressure 126/72 01/15/25 09:26 Pulse Oximetry 100 01/15/25 09:26 Oxygen Delivery Room Air 01/14/25 16:10 <Sarwat Cool MD - Last Filed: 01/15/25 21:36> Vital Signs Temperature 36.6 C 01/14/25 16:10 Pulse Rate 67 01/14/25 16:10 Respiratory Rate 16 01/14/25 16:10 Blood Pressure 135/84 01/14/25 16:10 Pulse Oximetry 99 01/14/25 16:10 Oxygen Delivery Room Air 01/14/25 16:10 Temperature 36.7 C 01/15/25 09:26 Pulse Rate 95 01/15/25 09:26 Respiratory Rate 15 01/15/25 09:26 Blood Pressure 126/72 01/15/25 09:26 Pulse Oximetry 100 01/15/25 09:26 Oxygen Delivery Room Air 01/14/25 16:10 <Madeline Walters, FABIAN - Last Filed: 01/15/25 02:49> Vital Signs Temperature 36.6 C 01/14/25 16:10 Pulse Rate 67 01/14/25 16:10 Respiratory Rate 16 01/14/25 16:10 Blood Pressure 135/84 01/14/25 16:10 Pulse Oximetry 99 01/14/25 16:10 Oxygen Delivery Room Air 01/14/25 16:10 Temperature 36.7 C 01/15/25 09:26 Pulse Rate 95 01/15/25 09:26 Respiratory Rate 15 01/15/25 09:26 Blood Pressure 126/72 01/15/25 09:26 Pulse Oximetry 100 01/15/25 09:26 Oxygen Delivery Room Air 01/14/25 16:10 <Jez Jarvis MD - Last Filed: 01/15/25 06:45> MDM - Psych MDM Narrative Medical decision making narrative: 19-year-old female presenting after suicidal ideation and gestures to try and harm herself. Patient took a knife and held other concerns throat and then took a pill bottle and did not ingest any but threatened to. This was related to high anxiety states and an argument with her family member was present at bedside. Patient is not any acute distress, normal vital signs. She is expressing desire for psychiatric help. Denies any somatic complaints. She otherwise is well appearing and does not take any chronic medications. Psychiatric clearance laboratory studies were obtained and we will call behavioral health services to, evaluate the patient for potential interventions versus safety plan verses hospitalization if warranted. Patient is amenable to this as well as the family members at bedside. Laboratory studies are within normal range, UDS positive for cannabinoids otherwise unremarkable workup. Patient is medically cleared for psychiatric evaluation and final disposition per their recommendations at this time. Psychiatry team has evaluated the patient and recommends voluntary admission. Placement pending. Patient signed out to [facility] ER physician pending placement. <Sarwat Cool MD - Last Filed: 01/15/25 21:36> 19-year-old female presenting after suicidal ideation and gestures to try and harm herself. Patient took a knife and held other concerns throat and then took a pill bottle and did not ingest any but threatened to. This was related to high anxiety states and an argument with her family member was present at bedside. Patient is not any acute distress, normal vital signs. She is expressing desire for psychiatric help. Denies any somatic complaints. She otherwise is well appearing and does not take any chronic medications. Psychiatric clearance laboratory studies were obtained and we will call behavioral health services to, evaluate the patient for potential interventions versus safety plan verses hospitalization if warranted. Patient is amenable to this as well as the family members at bedside. Laboratory studies are within normal range, UDS positive for cannabinoids otherwise unremarkable workup. Patient is medically cleared for psychiatric evaluation and final disposition per their recommendations at this time. Psychiatry team has evaluated the patient and recommends voluntary admission. [facility] pending[facility] 2200- I assumed care of this patient. She remains calm and cooperative. 2400-Pt is currently sleeping soundly on her stretcher. 0300-Care signed out to Dr. Jarvis at shift change. <Madeline Walters APRN - Last Filed: 01/15/25 02:49> Medical Records Attestation: I reviewed the patient's medical records. <Sarwat Cool MD - Last Filed: 01/15/25 21:36> Lab Data Attestation: I reviewed the patient's lab results. <Sarwat Cool MD - Last Filed: 01/15/25 21:36> Result diagrams: 01/14/25 16:10 01/14/25 16:10 <Sarwat Cool MD - Last Filed: 01/15/25 21:36> Labs: Lab Results 01/14/25 01/14/25 01/14/25 Range/Units 16:10 16:11 16:20 WBC 5.4 (4.5-10.0) K/mm3 RBC 4.91 (4.2-5.4) M/mm3 Hgb 14.0 (12.0-15.0) g/dL Hct 42.5 (37.0-47.0) % MCV 86.6 (80-100) fl MCH 28.5 (26-34) pg MCHC 32.9 (32-36) g/dl RDW 13.2 (11.5-14.5) % Plt Count 136 L (150-375) k/mm3 MPV 14.1 H (7.4-10.4) fl Immature Gran % (Auto) 0.2 (0-0.5) % Neut % (Auto) 72.2 (45.5-73.1) % Lymph % (Auto) 21.3 (18.3-44.2) % [place] % (Auto) 5.2 (2.6-8.5) % Eos % (Auto) 0.4 (0-4.4) % Baso % (Auto) 0.7 (0.2-1.2) % Lymph # (Auto) 1.15 (0.9-3.2) K/mm3 [place] # (Auto) 0.3 (0.1-0.6) K/mm3 Eos # (Auto) 0.0 (0-0.3) K/mm3 Baso # (Auto) 0.0 (0.0-0.1) K/mm3 Abs Immat Gran (auto) 0.01 (0.00-0.031) K/mm3 Absolute Neuts (auto) 3.9 (1.3-6.7) K/mm3 Absolute Nucleated RBC 0.000 (0.0-0.012) K/mm3 Nucleated RBC % 0.0 (0.0-0.2) % % Immature Plt Fraction 26.0 H (0.9-11.2) % Sodium 142 (137-145) mmol/L Potassium 4.2 (3.4-5.0) mmol/L Chloride 107 (98-107) mmol/L Carbon Dioxide 25 (22-30) mmol/L Anion Gap 10 (4-12) mmol/L BUN 12 (7-17) mg/dL Creatinine 0.75 (0.7-1.0) mg/dL Estim Creat Clear Calc 90 ml/min Estimated GFR > 60 (59 - ) Glucose 88 (65-110) mg/dL Calcium 9.9 (8.4-10.2) mg/dL Total Bilirubin 0.9 (0.2-1.3) mg/dL AST 29 (14-36) U/L ALT 18 (6-35) U/L Alkaline Phosphatase 27 L (38-126) U/L Total Protein 8.5 H (6.3-8.2) g/dL Albumin 5.1 (3.5-5.1) g/dL TSH (Reflex) 0.936 (0.465-4.68) uIU/mL Urine Color Yellow (Yellow) Urine Appearance Cloudy H (Clear) Urine pH 7.0 (5.0-9.0) Ur Specific [place] 1.022 (1.001-1.035) Urine Protein 1+ H (Negative) mg/dL Urine Glucose (UA) Negative (Negative) mg/dL Urine Ketones Trace H (Negative) mg/dL Ur Blood (Man) Negative (Negative) Urine Nitrate Negative (Negative) Urine Bilirubin Negative (Negative) Urine Urobilinogen 1.0 (<2.0) mg/dL Leukocyte Esterase Rfl 1+ H (Negative) NAVIN/UL Urine RBC 0-2 (0-2) /hpf Urine WBC 11-20 H (0-3) /hpf Ur Squamous Epith Cells Moderate (Few) /hpf Urine Bacteria 1+ H /hpf Urine Casts 3-5 POC Urine HCG, Qual Negative (Negative) Urine Opiates Screen Negative (Negative) Urine Methadone Screen Negative (Negative) Ur Barbiturates Screen Negative (Negative) Ur Phencyclidine Scrn Negative (Negative) Ur Amphetamine Screen Negative (Negative) U Benzodiazepines Scrn Negative (Negative) Urine Cocaine Screen Negative (Negative) U Cannabinoids Screen Positive A (Negative) Ethyl Alcohol < 10 (<10) mg/dL Influenza A (RT-PCR) Negative (Negative) Influenza B (RT-PCR) Negative (Negative) RSV (RT-PCR) Negative (Negative) SARS-CoV-2 RNA (RT-PCR) Negative (Negative) <Sarwat Cool MD - Last Filed: 01/15/25 21:36> Lab Results 01/14/25 01/14/25 01/14/25 Range/Units 16:10 16:11 16:20 WBC 5.4 (4.5-10.0) K/mm3 RBC 4.91 (4.2-5.4) M/mm3 Hgb 14.0 (12.0-15.0) g/dL Hct 42.5 (37.0-47.0) % MCV 86.6 (80-100) fl MCH 28.5 (26-34) pg MCHC 32.9 (32-36) g/dl RDW 13.2 (11.5-14.5) % Plt Count 136 L (150-375) k/mm3 MPV 14.1 H (7.4-10.4) fl Immature Gran % (Auto) 0.2 (0-0.5) % Neut % (Auto) 72.2 (45.5-73.1) % Lymph % (Auto) 21.3 (18.3-44.2) % [place] % (Auto) 5.2 (2.6-8.5) % Eos % (Auto) 0.4 (0-4.4) % Baso % (Auto) 0.7 (0.2-1.2) % Lymph # (Auto) 1.15 (0.9-3.2) K/mm3 [place] # (Auto) 0.3 (0.1-0.6) K/mm3 Eos # (Auto) 0.0 (0-0.3) K/mm3 Baso # (Auto) 0.0 (0.0-0.1) K/mm3 Abs Immat Gran (auto) 0.01 (0.00-0.031) K/mm3 Absolute Neuts (auto) 3.9 (1.3-6.7) K/mm3 Absolute Nucleated RBC 0.000 (0.0-0.012) K/mm3 Nucleated RBC % 0.0 (0.0-0.2) % % Immature Plt Fraction 26.0 H (0.9-11.2) % Sodium 142 (137-145) mmol/L Potassium 4.2 (3.4-5.0) mmol/L Chloride 107 (98-107) mmol/L Carbon Dioxide 25 (22-30) mmol/L Anion Gap 10 (4-12) mmol/L BUN 12 (7-17) mg/dL Creatinine 0.75 (0.7-1.0) mg/dL Estim Creat Clear Calc 90 ml/min Estimated GFR > 60 (59 - ) Glucose 88 (65-110) mg/dL Calcium 9.9 (8.4-10.2) mg/dL Total Bilirubin 0.9 (0.2-1.3) mg/dL AST 29 (14-36) U/L ALT 18 (6-35) U/L Alkaline Phosphatase 27 L (38-126) U/L Total Protein 8.5 H (6.3-8.2) g/dL Albumin 5.1 (3.5-5.1) g/dL TSH (Reflex) 0.936 (0.465-4.68) uIU/mL Urine Color Yellow (Yellow) Urine Appearance Cloudy H (Clear) Urine pH 7.0 (5.0-9.0) Ur Specific [place] 1.022 (1.001-1.035) Urine Protein 1+ H (Negative) mg/dL Urine Glucose (UA) Negative (Negative) mg/dL Urine Ketones Trace H (Negative) mg/dL Ur Blood (Man) Negative (Negative) Urine Nitrate Negative (Negative) Urine Bilirubin Negative (Negative) Urine Urobilinogen 1.0 (<2.0) mg/dL Leukocyte Esterase Rfl 1+ H (Negative) NAVIN/UL Urine RBC 0-2 (0-2) /hpf Urine WBC 11-20 H (0-3) /hpf Ur Squamous Epith Cells Moderate (Few) /hpf Urine Bacteria 1+ H /hpf Urine Casts 3-5 POC Urine HCG, Qual Negative (Negative) Urine Opiates Screen Negative (Negative) Urine Methadone Screen Negative (Negative) Ur Barbiturates Screen Negative (Negative) Ur Phencyclidine Scrn Negative (Negative) Ur Amphetamine Screen Negative (Negative) U Benzodiazepines Scrn Negative (Negative) Urine Cocaine Screen Negative (Negative) U Cannabinoids Screen Positive A (Negative) Ethyl Alcohol < 10 (<10) mg/dL Influenza A (RT-PCR) Negative (Negative) Influenza B (RT-PCR) Negative (Negative) RSV (RT-PCR) Negative (Negative) SARS-CoV-2 RNA (RT-PCR) Negative (Negative) <Madeline Walters, TERRITORY ACCOUNT REPRESENTATIVE - Last Filed: 01/15/25 02:49> Lab Results 01/14/25 01/14/25 01/14/25 Range/Units 16:10 16:11 16:20 WBC 5.4 (4.5-10.0) K/mm3 RBC 4.91 (4.2-5.4) M/mm3 Hgb 14.0 (12.0-15.0) g/dL Hct 42.5 (37.0-47.0) % MCV 86.6 (80-100) fl MCH 28.5 (26-34) pg MCHC 32.9 (32-36) g/dl RDW 13.2 (11.5-14.5) % Plt Count 136 L (150-375) k/mm3 MPV 14.1 H (7.4-10.4) fl Immature Gran % (Auto) 0.2 (0-0.5) % Neut % (Auto) 72.2 (45.5-73.1) % Lymph % (Auto) 21.3 (18.3-44.2) % [place] % (Auto) 5.2 (2.6-8.5) % Eos % (Auto) 0.4 (0-4.4) % Baso % (Auto) 0.7 (0.2-1.2) % Lymph # (Auto) 1.15 (0.9-3.2) K/mm3 [place] # (Auto) 0.3 (0.1-0.6) K/mm3 Eos # (Auto) 0.0 (0-0.3) K/mm3 Baso # (Auto) 0.0 (0.0-0.1) K/mm3 Abs Immat Gran (auto) 0.01 (0.00-0.031) K/mm3 Absolute Neuts (auto) 3.9 (1.3-6.7) K/mm3 Absolute Nucleated RBC 0.000 (0.0-0.012) K/mm3 Nucleated RBC % 0.0 (0.0-0.2) % % Immature Plt Fraction 26.0 H (0.9-11.2) % Sodium 142 (137-145) mmol/L Potassium 4.2 (3.4-5.0) mmol/L Chloride 107 (98-107) mmol/L Carbon Dioxide 25 (22-30) mmol/L Anion Gap 10 (4-12) mmol/L BUN 12 (7-17) mg/dL Creatinine 0.75 (0.7-1.0) mg/dL Estim Creat Clear Calc 90 ml/min Estimated GFR > 60 (59 - ) Glucose 88 (65-110) mg/dL Calcium 9.9 (8.4-10.2) mg/dL Total Bilirubin 0.9 (0.2-1.3) mg/dL AST 29 (14-36) U/L ALT 18 (6-35) U/L Alkaline Phosphatase 27 L (38-126) U/L Total Protein 8.5 H (6.3-8.2) g/dL Albumin 5.1 (3.5-5.1) g/dL TSH (Reflex) 0.936 (0.465-4.68) uIU/mL Urine Color Yellow (Yellow) Urine Appearance Cloudy H (Clear) Urine pH 7.0 (5.0-9.0) Ur Specific [place] 1.022 (1.001-1.035) Urine Protein 1+ H (Negative) mg/dL Urine Glucose (UA) Negative (Negative) mg/dL Urine Ketones Trace H (Negative) mg/dL Ur Blood (Man) Negative (Negative) Urine Nitrate Negative (Negative) Urine Bilirubin Negative (Negative) Urine Urobilinogen 1.0 (<2.0) mg/dL Leukocyte Esterase Rfl 1+ H (Negative) NAVIN/UL Urine RBC 0-2 (0-2) /hpf Urine WBC 11-20 H (0-3) /hpf Ur Squamous Epith Cells Moderate (Few) /hpf Urine Bacteria 1+ H /hpf Urine Casts 3-5 POC Urine HCG, Qual Negative (Negative) Urine Opiates Screen Negative (Negative) Urine Methadone Screen Negative (Negative) Ur Barbiturates Screen Negative (Negative) Ur Phencyclidine Scrn Negative (Negative) Ur Amphetamine Screen Negative (Negative) U Benzodiazepines Scrn Negative (Negative) Urine Cocaine Screen Negative (Negative) U Cannabinoids Screen Positive A (Negative) Ethyl Alcohol < 10 (<10) mg/dL Influenza A (RT-PCR) Negative (Negative) Influenza B (RT-PCR) Negative (Negative) RSV (RT-PCR) Negative (Negative) SARS-CoV-2 RNA (RT-PCR) Negative (Negative) <Jez Jarvis MD - Last Filed: 01/15/25 06:45> Discharge Plan Discharge Clinical Impression: Suicidal ideation <Sarwat Cool MD - Last Filed: 01/15/25 21:36> Patient Disposition: Still a Patient <Sarwat Cool MD - Last Filed: 01/15/25 21:36> Condition: Stable <Sarwat Cool MD - Last Filed: 01/15/25 21:36> Patient Language: Martiniquais <Sarwat Cool MD - Last Filed: 01/15/25 21:36> Prescriptions: No Action epinephrine 0.3 mg/0.3 mL syringe 0.3 mg IM Q5-15M PRN (Reason: anaphylaxis) Qty: 2 0RF Rx Instructions: do not exceed 3 doses per episode epinephrine [EpiPen] 0.3 mg/0.3 mL auto-injector 0.3 mg IM ONCE PRN (Reason: hypersensitivity reaction) Qty: 2 2RF Rx Instructions: as a single dose; may repeat once cetirizine 10 mg tablet See Rx Instructions .ROUTE .COMPLEX Qty: 90 2RF Dose Instruction: TAKE 1 TABLET BY MOUTH EVERY DAY Rx Instructions: TAKE 1 TABLET BY MOUTH EVERY DAY <Sarwat Cool MD - Last Filed: 01/15/25 21:36> Follow-up/Referrals: Axel Hummel MD [Primary Care Provider] - <Sarwat Cool MD - Last Filed: 01/15/25 21:36>
[2025-01-14 16:55] LABS: Influenza A QL RT-PCR Negative (Negative); Influenza B QL RT-PCR Negative (Negative); RSV RNA, RT-PCR Negative (Negative); SARS-CoV-2 RNA PCR Negative (Negative)
[2025-01-14 16:59] LABS: Thyroid Stimulating Hormone Reflex 0.936 uIU/mL (0.465-4.68)
[2025-01-14 18:00] VITALS: BP 130/85; PULSE 88; RESP 16; O2SAT 100
--- NOTE | 2025-01-14 18:37 | PC.NURSE ---
gave report to [facility] workers
[2025-01-14] MEDS: LORazepam (*CRX) 1 MG TABLET PO (19:21)
[2025-01-14 21:12] VITALS: BP 132/86; PULSE 83; RESP 16; O2SAT 100
--- NOTE | 2025-01-14 21:48 | PC.NURSE ---
[facility] called for placement. no female beds at this tiem
--- NOTE | 2025-01-14 21:58 | PC.NURSE ---
requested paper work faxed to [facility] and [facility]
--- NOTE | 2025-01-14 22:25 | PC.NURSE ---
[facility] declined patient
--- NOTE | 2025-01-14 23:43 | PC.NURSE ---
Assumed care of patient at 1925 after receiving bedside report from Reshma Tenorio RN.
--- NOTE | 2025-01-15 03:50 | PC.NURSE ---
Per RN Jaden Banks stated they will call back at 0800 once the nurse is on site to assess and see if they have the staffing to accept pt.
[2025-01-15 04:31] VITALS: BP 120/78; PULSE 70; RESP 16; TEMP 36.6; O2SAT 100
--- NOTE | 2025-01-15 05:51 | PC.NURSE ---
Voluntary paperwork was faxed to [facility] at [phone].
--- NOTE | 2025-01-15 06:18 | PC.NURSE ---
This RN called [facility] and confirmed the fax was received.
[2025-01-15 07:19] VITALS: BP 123/81; PULSE 78; RESP 15; TEMP 36.5; O2SAT 100
--- NOTE | 2025-01-15 07:21 | PC.NURSE ---
[facility] faxed pt petition for voluntary admission forms fax no. [phone]
--- NOTE | 2025-01-15 07:38 | PC.NURSE ---
This RN spoke with Kenyatta at [facility] and gave update regarding pt, including that pt has not been accepted anywhere yet. Informed her that Ирина stated they would call later this morning with an update and that voluntary forms were faxed to [facility]
[2025-01-15 09:26] VITALS: BP 126/72; PULSE 95; RESP 15; TEMP 36.7; O2SAT 100
== END 2025-01-15 09:29 ==
PROVIDERS: Emergency Provider Student in an Organized Health Care Education/Training Program; PCP Emergency Medicine
DX: R45.851 Suicidal ideations (principal); I10 Essential (primary) hypertension; Z20.822 Contact with and (suspected) exposure to COVID-19
CPT/HCPCS: 36415; 80053; 80307; 81001; 81025; 82077; 84443; 85025; 85055; 87637; 99285; A9270